=== PATIENT | male | born 1960 | race Caucasian/White ===

== ENCOUNTER 2022-02-19 15:57 | Emergency (ER) | payer OTHER ==
[~2022-02-19] VITALS: Ht 180.3 cm; Wt 98.0 kg
--- NOTE | 2022-02-19 16:02 | NUR ---
BIBS AFTER EATING AND HAVING AN ALLERGIC REACITON PT HAS GENERALIZED REDNESS AND RASH ON UPPER EXTREMITIES. ATTACHED TO MONITOR, VITALS ARE WITHIN NORMAL LIMTIS, NO RESP DISTRESS NOTED, SATTING AT 98% ON ROOM AIR. PT TOOK BENEDRY 50MG PRIOR TO ARRIVAL. DR PACHECO AT BEDSIDE.
[2022-02-19] MEDS ORDERED: ATOR10TA PO (16:04)
[2022-02-19] MEDS ORDERED: EPINEPHRINE (1:1000) 1 MG/ML AMPUL ONE (16:07)
[2022-02-19] MEDS ORDERED: predniSONE 20 MG TABLET ONE (16:07)
[2022-02-19] MEDS ORDERED: EPINEPHRINE (1:1000) MDV 30 MG/30ML VIAL SUBCUT ONE (16:30)
[2022-02-19] MEDS ORDERED: predniSONE 10 MG TABLET PO ONE (16:30)
[2022-02-19] MEDS ORDERED: diphenhydrAMINE HCL 50 MG CAPSULE PO ONE (16:30)
[2022-02-19] MEDS ORDERED: EPIN0.3P3 IM (17:09)
[2022-02-19] MEDS ORDERED: PRED50TA PO (17:10)
[2022-02-19 17:21] VITALS: BP 133/87
--- NOTE | 2022-02-19 17:21 | NUR ---
Patient discharged to home in stable condition. Written and verbal after care instructions given. Patient verbalizes understanding of instruction.IV removed. Catheter intact and site benign. Pressure and 4x4 applied to site. No bleeding noted.
== END 2022-02-19 17:22 | disposition home or self-care (01) ==
LOC: ER 16:02
DX: T78.1XXA Other adverse food reactions, not elsewhere classified, initial encounter (principal); E78.00 Pure hypercholesterolemia, unspecified; E78.5 Hyperlipidemia, unspecified; Z91.013 Allergy to seafood; Z79.899 Other long term (current) drug therapy; X58.XXXA Exposure to other specified factors, initial encounter
CPT/HCPCS: 96372; 99283; J0171 ×2; J7512 ×2